=== PATIENT | male | born 1970 | race African-American/Black ===

== ENCOUNTER 2017-05-28 07:23 | Emergency (ER) | payer MEDICAID ==
[~2017-05-28] VITALS: Ht 180.3 cm; Wt 66.0 kg
[2017-05-28] MEDS ORDERED: SODIUM CHLORIDE 0.9% 1,000 ML IV ONE (08:41)
[2017-05-28 09:05] LABS: BASOPHILS % 0.8 % (0.0-2.0); CHLORIDE 107 mEq/L (98-107); EOSINOPHILS % 1.2 % (0.0-5.0); HEMATOCRIT. 42.1 % (42.0-52.0); HEMOGLOBIN. 14.2 g/dL (14.0-18.0); INR 1.1; LYMPHOCYTES % 18.3 % (20.0-50.0); MEAN CORPUSCULAR VOLUME 97.6 fL (80.0-94.0); MEAN PLATELET VOLUME 7.4 fl (7.4-10.4); NEUTROPHILS % 71.7 % (40.0-76.0); PLATELET 337 x1000/uL (130-400); RED BLOOD CELL COUNT 4.31 mill/uL (4.7-6.1); RED CELL DISTRIBUTION WIDTH 13.7 % (11.6-14.6)
[2017-05-28 11:41] VITALS: BP 132/82
== END 2017-05-28 11:43 | disposition home or self-care (01) ==
LOC: ER 08:12
DX: R42 Dizziness and giddiness (principal); R51 Headache
CPT/HCPCS: 36415; 70450; 80053; 85025; 85610; 93005; 96360; 96361; 99285; J7030

== ENCOUNTER 2017-07-10 14:20 | Emergency (ER) | payer MEDICAID ==
[~2017-07-10] VITALS: Ht 180.3 cm; Wt 66.0 kg
[2017-07-10] MEDS ORDERED: TETRACAINE 0.5% OPHTH DROPS 4ML RIGHTEYE ONE (14:45)
[2017-07-10] MEDS ORDERED: FLUORESCEIN SODIUM 1MG/STRIP RIGHTEYE ONE (14:45)
[2017-07-10] MEDS ORDERED: TETRACAINE 0.5% OPHTH DROPS 4ML RIGHTEYE SCH (22:00)
[2017-07-10] MEDS ORDERED: FLUORESCEIN SODIUM 1MG/STRIP RIGHTEYE SCH (22:00)
[2017-07-11 00:15] VITALS: BP 123/75
== END 2017-07-11 00:40 | disposition home or self-care (01) ==
LOC: ER 14:20
DX: S05.11XA Contusion of eyeball and orbital tissues, right eye, initial encounter (principal); W20.8XXA Other cause of strike by thrown, projected or falling object, initial encounter; Y93.89 Activity, other specified; Y92.89 Other specified places as the place of occurrence of the external cause; Y99.8 Other external cause status
CPT/HCPCS: 70486; 99284

== ENCOUNTER 2021-07-17 09:54 | Emergency (ER) | payer MEDICAID ==
[~2021-07-17] VITALS: Ht 180.3 cm; Wt 73.0 kg
[2021-07-17 09:57] VITALS: BP 125/88
[2021-07-17 11:13] LABS: BASOPHILS % 0.3 % (0.0-2.0); EOSINOPHILS % 0.6 % (0.0-5.0); HEMOGLOBIN. 14.2 g/dL (14.0-18.0); LYMPHOCYTES % 16.7 % (20.0-50.0); MEAN CORPUSCULAR HEMOGLOBIN 33.6 pg (28.0-32.0); MEAN CORPUSCULAR VOLUME 99.4 fL (80.0-94.0); MEAN PLATELET VOLUME 7.6 fl (7.4-10.4); MONOCYTES % 6.4 % (2.0-8.0); PLATELET 389 x1000/uL (130-400); RED BLOOD CELL COUNT 4.22 mill/uL (4.7-6.1); RED CELL DISTRIBUTION WIDTH 13.9 % (11.6-14.6)
[2021-07-17 11:22] LABS: CHLORIDE 110 mEq/L (98-107)
== END 2021-07-17 14:43 | disposition home or self-care (01) ==
LOC: ER 10:42
DX: R07.89 Other chest pain (principal); M54.30 Sciatica, unspecified side
CPT/HCPCS: 36415; 80053; 83880; 84484; 85025; 93005; 99284